=== PATIENT | female | born 1980 | race Caucasian/White ===

== ENCOUNTER → 2017-12-03 | Outpatient (CLI) | payer SELFPAY ==
[2017-12-03 18:02] LABS: Free Thyroxine 0.92 ng/dL (0.70-1.60); Thyroid Stimulating Hormone 2.151 uIU/mL (0.360-4.800)
== END | disposition home or self-care (01) ==
LOC: LAB EV 17:39 → LAB SHORT 17:39
PROVIDERS: Physician Assistant
DX: E04.1 Nontoxic single thyroid nodule (principal)
CPT/HCPCS: 84439; 84443; 84481

== ENCOUNTER 2020-09-20 09:22 | Day surgery (SDC) | payer OTHER ==
[2020-09-18 16:25] LABS: Anion Gap 7 mmol/L (6-16); Blood Urea Nitrogen 7 mg/dL (8-24); Bun/Creatinine Ratio 10.6 (12.0-20.0); CO2, Blood 24 mmol/L (21-32); Chloride, Blood 109 mmol/L (98-108); Creatinine, Blood 0.66 mg/dL (0.40-1.00); Glomerular Filtration Rate >60 (60-); Glucose, Blood 107 mg/dL (70-99); Potassium, Blood 3.8 mmol/L (3.5-5.5); Sodium, Blood 140 mmol/L (136-145)
[~2020-09-20] VITALS: Ht 160 cm; Wt 72.6 kg
--- NOTE | 2020-09-20 10:00 | NUR ---
PT TEARFUL, JUST NERVOUS. CALMED DWN AFTER TALKING. Ambulatory in Day Surgery. History, Chart, Medications and Allergies reviewed before start of procedure. Lungs clear T/O to Auscultation. Patient confirms NPO status and agrees with scheduled surgery. Pre-Op teaching done. Pt verbalizes understanding.
--- NOTE | 2020-09-20 11:31 | NUR ---
09/20/20 1131 Tamar Avilez PLACED INTRAOPERATIVELY BY DR. MEDINA
--- NOTE | 2020-09-20 13:39 | NUR ---
REPORT RECEIVED FROM [facility] IN [facility]ERY. PT ON WAY DOWN TO [facility] TO ROOM #130.
--- NOTE | 2020-09-20 15:28 | NUR ---
DR. MEDINA CALLED AND RECEIVED UPDATED T/O: PT ALLOWED TO D/C WHEN ABLE TO AMBULATE ON HER OWN, RETAIN FLUIDS AND SOLIDS, POST VOID AND NO NAUSEA AND VOMITTING. ELECTRONIC PRESCRIPTION IN CHART AND MOTRIN PRESCRIPTION CALLED INTO PHARMACY. NO OTHER NEW ORDERS.
[2020-09-20] MEDS ORDERED: OXYC5 PO (15:54)
--- NOTE | 2020-09-20 16:20 | NUR ---
DISCHARGE INTSTRUCTIONS, WRITTEN AND VERBAL, GIVEN TO PT. ANSWERED ALL OF HER QUESTIONS AND CONCERNS. IV DISCONTINUED, SITE WNL. ELECTRONIC PRESCRIPTION GIVEN. PT DENIES N/V, VOIDING WITHOUT DIFFICULTY, TORADOL GIVEN VIA IV BEFORE DISCONTINUING. PT'S HERE TO PICK HER UP. PT IS DISCHARGED HOME.
== END 2020-09-20 16:25 | disposition home or self-care (01) ==
LOC: ORSCMMR 09:22 → ORD 10:30 → ORSCMMR 13:57 → BC 13:57 → ORSCMMR 16:25
PROVIDERS: Obstetrics & Gynecology
PROC: 0UT7FZZ Resection of Bilateral Fallopian Tubes, Via Natural or Artificial Opening With Percutaneous Endoscopic Assistance (ICD-10-PCS; principal; 2020-09-20 10:30)
PROC: 0UT9FZZ Resection of Uterus, Via Natural or Artificial Opening With Percutaneous Endoscopic Assistance (ICD-10-PCS; principal; 2020-09-20 10:30)
PROC: 0UT0FZZ Resection of Right Ovary, Via Natural or Artificial Opening With Percutaneous Endoscopic Assistance (ICD-10-PCS; principal; 2020-09-20 10:30)
DX: N92.0 Excessive and frequent menstruation with regular cycle (principal); N83.291 Other ovarian cyst, right side
CPT/HCPCS: 36415; 80048; 86850; 86900; 86901; 88307; A9270; J0171; J0690; J1100; J1885; J2370; J2405; J2704; J3010; J7120